=== PATIENT | female | born 1970 | race Caucasian/White ===

== ENCOUNTER → 2019-02-06 | Outpatient (CLI) | payer BC ==
--- NOTE | 2019-02-07 07:29 | MM ---
Reason for exam: screening (asymptomatic). Last mammogram was performed 3 years and 2 months ago. History: Family history of breast cancer in maternal grandmother at age 86 and breast cancer in aunt at age 69. Cyst aspiration of the left breast, July 04, 2004. Took hormonal contraceptives for 6 months beginning at age 22. Physical Findings: A clinical breast exam by your physician is recommended on an annual basis and results should be correlated with mammographic findings. MG 3D Screening Mammo W/Cad Bilateral CC and MLO view(s) were taken. Prior study comparison: December 14, 2015, bilateral MG screening mammo w CAD. October 22, 2014, bilateral MG screening mammo w CAD. The breast tissue is heterogeneously dense. This may lower the sensitivity of mammography. No significant changes when compared with prior studies. ASSESSMENT: Benign, BI-RAD 2 RECOMMENDATION: Routine screening mammogram of both breasts in 1 year.
== END ==
LOC: RADMAMWWP 07:16
PROVIDERS: ATTEND Obstetrics & Gynecology
DX: Z12.31 Encounter for screening mammogram for malignant neoplasm of breast (principal)
CPT/HCPCS: 77063; 77067

== ENCOUNTER 2020-09-14 16:36 | Emergency (ER) | payer BC ==
[2020-09-14 19:56] VITALS: RESP 18
--- NOTE | 2020-09-14 19:56 | ED ---
General Adult HPI - General Stated complaint: Covid+/sob/nausea/vomiting - History of Present Illness Initial comments: Pt was seen as a medical screening in [facility]: Pt is a 49 yo F without any significant PMH diagnosed with COVID on 09/05/20 presents for SOB. She has had symptoms of COVID for the past week. States she has had a persistent fever but it finally broke 24 hours ago. States she has had some shortness of breath and is difficult to take a deep breath. States her chest feels congested. Patient states she feels it was time to be "checked out." triage vitals: bp 141/94, HR 92, O2 sat 97% RA. I did see patient in the ER, HPI as documented above. - Related Data Home Medications Medication Instructions Recorded Confirmed Acetaminophen Tab [Tylenol Tab] 1,000 mg PO Q6HR PRN 09/14/20 09/14/20 guaiFENesin [Mucinex] 600 mg PO Q12H PRN 09/14/20 09/14/20 Previous Rx's Medication Instructions Recorded Albuterol Inhaler [Ventolin Hfa 2 puff INHALATION RT-QID PRN #1 09/14/20 Inhaler] inhaler Benzonatate [Tessalon Perles] 200 mg PO Q8H PRN #15 capsule 09/14/20 Allergies Allergy/AdvReac Type Severity Reaction Status Date / Time Iodinated Contrast Media Allergy Rash/Hives Verified 09/14/20 20:48 Review of Systems ROS Statement: Those systems with pertinent positive or pertinent negative responses have been documented in the HPI. ROS Other: All systems not noted in ROS Statement are negative. General Exam General appearance: alert, in no apparent distress Head exam: Present: atraumatic, normocephalic, normal inspection Eye exam: Present: normal appearance, PERRL, EOMI. Absent: scleral icterus, conjunctival injection, periorbital swelling ENT exam: Present: normal exam, mucous membranes moist Neck exam: Present: normal inspection, full ROM. Absent: tenderness, meningismus, lymphadenopathy Respiratory exam: Present: normal lung sounds bilaterally. Absent: respiratory distress, wheezes, rales, rhonchi, stridor Cardiovascular Exam: Present: regular rate, normal rhythm, normal heart sounds. Absent: systolic murmur, diastolic murmur, rubs, gallop, clicks GI/Abdominal exam: Present: soft, normal bowel sounds. Absent: distended, tenderness, guarding, rebound, rigid Course Vital Signs 09/14/20 09/14/20 09/14/20 19:52 20:52 21:22 Temperature 98.2 F Pulse Rate 92 86 90 Respiratory 18 18 18 Rate Blood Pressure 141/95 145/82 160/93 O2 Sat by Pulse 97 99 97 Oximetry Medical Decision Making - Medical Decision Making Vitals are stable. Patient is well-appearing. No respiratory distress. Patient is 97-99% on room air. EKG nonischemic. CBC CMP unremarkable. Troponin is negative. Chest x-ray did reveal coarse bilateral pulmonary infiltrates. Patient is stable for discharge home with outpatient follow-up. Patient does agree to antibody infusion as she does meet for BMI. I did discuss strict return parameters. I discussed this case with attending Dr. Ko who agrees with this assessment and treatment plan. - Lab Data Result diagrams: 09/14/20 20:56 09/14/20 20:56 Lab Results 09/14/20 09/14/20 09/14/20 Range/Units 20:56 20:56 20:56 WBC 6.9 (3.8-10.6) k/uL RBC 5.54 H (3.80-5.40) m/uL Hgb 14.0 (11.4-16.0) gm/dL Hct 42.3 (34.0-46.0) % MCV 76.3 L (80.0-100.0) fL MCH 25.3 (25.0-35.0) pg MCHC 33.2 (31.0-37.0) g/dL RDW 14.1 (11.5-15.5) % Plt Count 284 (150-450) k/uL MPV 7.4 Neutrophils % 69 % Lymphocytes % 21 % Monocytes % 6 % Eosinophils % 1 % Basophils % 1 % Neutrophils # 4.8 (1.3-7.7) k/uL Lymphocytes # 1.5 (1.0-4.8) k/uL Monocytes # 0.4 (0-1.0) k/uL Eosinophils # 0.1 (0-0.7) k/uL Basophils # 0.0 (0-0.2) k/uL Microcytosis Slight Sodium 137 (137-145) mmol/L Potassium 3.6 (3.5-5.1) mmol/L Chloride 102 (98-107) mmol/L Carbon Dioxide 26 (22-30) mmol/L Anion Gap 9 mmol/L BUN 8 (7-17) mg/dL Creatinine 0.59 (0.52-1.04) mg/dL Est GFR (CKD-EPI)AfAm >90 (>60 ml/min/1.73 sqM) Est GFR (CKD-EPI)NonAf >90 (>60 ml/min/1.73 sqM) Glucose 103 H (74-99) mg/dL Calcium 9.0 (8.4-10.2) mg/dL Total Bilirubin 0.5 (0.2-1.3) mg/dL AST 34 (14-36) U/L ALT 33 (4-34) U/L Alkaline Phosphatase 67 (38-126) U/L Troponin I <0.012 (0.000-0.034) ng/mL Total Protein 7.1 (6.3-8.2) g/dL Albumin 4.0 (3.5-5.0) g/dL Disposition Clinical Impression: COVID-19, Pneumonia due to COVID-19 virus Disposition: HOME SELF-CARE Condition: Good Instructions (If sedation given, give patient instructions): Coronavirus Disease 2019 (COVID-19) Additional Instructions: Take Motrin and Tylenol for fever or pain. Take Tessalon Perles as needed for cough. Use inhaler as needed. Please follow up with primary care in 1-2 days. Return to the emergency room for any worsening symptoms such as worsening shortness of breath. Prescriptions: Benzonatate [Tessalon Perles] 200 mg PO Q8H PRN #15 capsule PRN Reason: Cough Albuterol Inhaler [Ventolin Hfa Inhaler] 2 puff INHALATION RT-QID PRN #1 inhaler PRN Reason: Shortness Of Breath Is patient prescribed a controlled substance at d/c from ED?: No Referrals: Julia Cui III, MD [Primary Care Provider] - 1-2 days Time of Disposition: 23:36
--- NOTE | 2020-09-14 20:31 | XR ---
EXAMINATION TYPE: XR chest 2V DATE OF EXAM: 09/14/2020 COMPARISON: NONE HISTORY: Short of breath. Cough TECHNIQUE: 2 views FINDINGS: Heart and mediastinum are normal. There is coarse pulmonary interstitial infiltrates. There is no definite pleural effusion. There are no hilar masses. IMPRESSION: Coarse bilateral pulmonary infiltrates. Normal heart.
[2020-09-14 21:04] LABS: Basophils % (A) 1 %; Eosinophils # (A) 0.1 k/uL (0-0.7); Eosinophils % (A) 1 %; HCT 42.3 % (34.0-46.0); Lymphocytes # (A) 1.5 k/uL (1.0-4.8); Lymphocytes % (A) 21 %; MCH 25.3 pg (25.0-35.0); MCHC 33.2 g/dL (31.0-37.0); MCV 76.3 fL (80.0-100.0); Mean Platelet Volume 7.4; Microcytosis Slight; Monocytes # (A) 0.4 k/uL (0-1.0); Monocytes % (A) 6 %; Neutrophils # (A) 4.8 k/uL (1.3-7.7); Neutrophils % (A) 69 %; Platelet Count 284 k/uL (150-450); RBC 5.54 m/uL (3.80-5.40); RDW 14.1 % (11.5-15.5); WBC 6.9 k/uL (3.8-10.6)
[2020-09-14 21:13] LABS: ALT 33 U/L (4-34); AST 34 U/L (14-36); African American GFR (CKD) >90 (>60 ml/min/1.73 sqM); Alkaline Phosphatase 67 U/L (38-126); Anion Gap 9 mmol/L; Blood Urea Nitrogen 8 mg/dL (7-17); Carbon Dioxide 26 mmol/L (22-30); Chloride 102 mmol/L (98-107); Glucose 103 mg/dL (74-99); Non-African American GFR(CKD) >90 (>60 ml/min/1.73 sqM); Potassium 3.6 mmol/L (3.5-5.1); Sodium 137 mmol/L (137-145); Total Bilirubin 0.5 mg/dL (0.2-1.3); Total Protein 7.1 g/dL (6.3-8.2)
[2020-09-14] MEDS ORDERED: BAMLANIVIMAB (EUA) 700 MG, ETESEVIMAB (EUA) 1,400 MG in SODIUM CHLORIDE 0.9% 50 ML IVPB ONE (23:15)
[2020-09-15 02:08] VITALS: BP 135/73; PULSE 99; TEMP 98.7
== END 2020-09-15 01:48 | disposition home or self-care (01) ==
LOC: EC 16:36
DX: U07.1 COVID-19 (principal); J12.82 Pneumonia due to coronavirus disease 2019
CPT/HCPCS: 36415; 71046; 80053; 84484; 85025; 93005; 96365; 96374; 99285

== ENCOUNTER → 2021-04-06 | Outpatient (CLI) | payer BC ==
--- NOTE | 2021-04-07 11:40 | ECHOF ---
Referral Reason:R07.89 other chest pain MEASUREMENTS -------- HEIGHT: 165.1 cm WEIGHT: 95.3 kg BP: IVSd: 1.2 cm (0.6 - 1.1) LVIDd: 4.4 cm (3.9 - 5.3) LVPWd: 0.9 cm (0.6 - 1.1) EDV(Teich): 86 ml IVSs: 1.5 cm LVIDs: 2.7 cm LVPWs: 1.5 cm %IVS Thck: 30 % ESV(Teich): 27 ml EF(Teich): 68 % %FS: 38 % SV(Teich): 59 ml RVIDd: 2.9 cm (< 3.3) LALs A4C: 4.0 cm LAAs A4C: 12.1 cm LAESV A-L A4C: 31 ml LAESV MOD A4C: 30 ml LALs A2C: 5.0 cm LAAs A2C: 16.8 cm LAESV A-L A2C: 48 ml LAESV MOD A2C: 46 ml LAESV(A-L): 43 ml LAESV Index (A-L): 21.53 ml/m Ao Diam: 2.9 cm (2.0 - 3.7) LA Diam: 3.1 cm (2.7 - 3.8) AV Cusp: 1.8 cm (1.5 - 2.6) EPSS: 0.6 cm MV E Mark: 0.72 m/s MV DecT: 170 ms MV Dec Hamlin: 4.3 m/s MV A Mark: 0.54 m/s MV E/A Ratio: 1.34 MV PHT: 49 ms TR Vmax: 1.67 m/s TR maxP.18 mmHg RAP: 5.00 mmHg RVSP: 16.18 mmHg MV EF SLOPE: 94.72 mm/s (70 - 150) MV EXCURSION: 12.45 mm (> 18.000) FINDINGS -------- Sinus rhythm. This was a technically good study. The left ventricular size is normal. There is borderline concentric left ventricular hypertrophy. Overall left ventricular systolic function is low-normal with, an EF between 50 - 55 %. The right ventricle is normal in size. Normal LA size by volume 22+/-6 ml/m2. The right atrial size is normal. The aortic valve is trileaflet, and appears structurally normal. No aortic stenosis or regurgitation. Mild mitral regurgitation is present. Mild tricuspid regurgitation present. Right ventricular systolic pressure is normal at < 35 mmHg. There is no pulmonic regurgitation present. There is no pericardial effusion. CONCLUSIONS -------- 1. The left ventricular size is normal. 2. There is borderline concentric left ventricular hypertrophy. 3. Overall left ventricular systolic function is low-normal with, an EF between 50 - 55 %. 4. The right ventricle is normal in size. 5. Normal LA size by volume 22+/-6 ml/m2. 6. The right atrial size is normal. 7. The aortic valve is trileaflet, and appears structurally normal. No aortic stenosis or regurgitati on. 8. Mild mitral regurgitation is present. 9. Mild tricuspid regurgitation present. 10. There is no pericardial effusion. RESEARCH ASSOCIATE: Colleen Gaitan RDCS
== END | disposition home or self-care (01) ==
LOC: RADECHMAIN 13:53
PROVIDERS: ATTEND Family Medicine
DX: I08.1 Rheumatic disorders of both mitral and tricuspid valves (principal)
CPT/HCPCS: 93306

== ENCOUNTER → 2021-04-06 | Outpatient (CLI) | payer BC ==
--- NOTE | 2021-04-06 14:50 | XR ---
EXAMINATION TYPE: XR chest 2V DATE OF EXAM: 04/06/2021 COMPARISON: 09/14/2020 HISTORY: Chest pain TECHNIQUE: Frontal and lateral views of the chest are obtained. FINDINGS: There is no focal air space opacity. No evidence for pneumothorax. No pleural effusion. The cardiac silhouette size is within normal limits. The osseous structures are grossly intact. IMPRESSION: 1. No acute cardiopulmonary process.
== END | disposition home or self-care (01) ==
LOC: RADXRMAIN 14:26
PROVIDERS: ATTEND Family Medicine
DX: R07.9 Chest pain, unspecified (principal)
CPT/HCPCS: 71046

== ENCOUNTER → 2022-05-23 | Outpatient (CLI) | payer BC ==
--- NOTE | 2022-05-24 08:50 | MM ---
Reason for Exam: Screening (asymptomatic). Last mammogram was performed 3 year(s) and 4 month(s) ago. Patient History: Menarche at age 15. First Full-Term at age 20. Premenopausal. Hormonal Contraceptives for 6 months starting at age 22. 07/04/2004, Cyst Aspiration on the Left side. Maternal grandmother had breast cancer, age 86. Maternal aunt had breast cancer, age 69. Risk Values: Skylar 5 year model risk: 0.7%. NCI Lifetime model risk: 6.6%. Prior Study Comparison: 10/22/2014 Bilateral Screening Mammogram, [facility]. 12/14/2015 Bilateral Screening Mammogram, [facility]. 02/06/2019 Bilateral Screening Mammogram, [facility]. Tissue Density: There are scattered fibroglandular densities. Findings: Analyzed By CAD. There is no suspicious group of microcalcifications or new suspicious mass in either breast. Overall Assessment: Negative, BI-RAD 1 Management: Screening Mammogram of both breasts in 1 year. A clinical breast exam by your physician is recommended on an annual basis and results should be correlated with mammographic findings. [facility] will attempt to contact patient to return for supplemental views and ultrasound if indicated. Electronically signed and approved by: Brandon Chow DO
== END | disposition home or self-care (01) ==
LOC: RADMAMWWP 07:12
PROVIDERS: ATTEND Obstetrics & Gynecology
DX: Z12.31 Encounter for screening mammogram for malignant neoplasm of breast (principal); Z80.3 Family history of malignant neoplasm of breast
CPT/HCPCS: 77063; 77067

== ENCOUNTER 2022-06-29 06:28 | Day surgery (SDC) | payer BC ==
[2022-06-26 11:11] VITALS: BMI 36.6
--- NOTE | 2022-06-28 13:15 | P.HPOB ---
History of Present Illness H&P Date: 06/28/22 Chief Complaint: Dysfunctional uterine bleeding, endometrial polyp This patient is a pleasant 51 yr female who has been having long standing dysfunctional bleeding. Ultrasound shows a ~1.9cm endometrial polyp and endometrial biopsy was normal. She is now presenting for further evaluation and treatment by hysteroscopy, D&C, and endometrial ablation. Review of Systems Genitourinary: Reports as per HPI, Reports abnormal vaginal bleeding Menstruation: Reports as per HPI, Reports cycle variable, Reports period heavy Past Medical History Past Medical History: No Reported History Additional Past Medical History / Comment(s): OCCASIONAL VERTIGO, STATES HX LOW IRON., HEAVY FREQUENT MENSTRUAL PERIODS History of Any Multi-Drug Resistant Organisms: None Reported Additional Past Surgical History / Comment(s): LAPAROSCOPY, D & C. Past Anesthesia/Blood Transfusion Reactions: Motion Sickness, Postoperative Nausea & Vomiting (PONV) Additional Past Anesthesia/Blood Transfusion Reaction / Comment(s): OCCASIONAL VERTIGO. Past Psychological History: No Psychological Hx Reported Smoking Status: Former smoker Past Alcohol Use History: Occasional Additional Past Alcohol Use History / Comment(s): quit smoking 10 yrs ago (2011). Past Drug Use History: None Reported - Past Family History Mother Family Medical History: No Reported History Medications and Allergies Home Medications Medication Instructions Recorded Confirmed Type Ibuprofen [Motrin Ib] 400 - 800 mg PO DIRECTED PRN 06/26/22 06/26/22 History Immune Supplement 1 dose PO DIRECTED 06/26/22 History Allergies Allergy/AdvReac Type Severity Reaction Status Date / Time Iodinated Contrast Media Allergy Rash/Hives Verified 06/26/22 09:40 Exam - OBG Physical Exam Abdomen: bowel sounds normal, no diffuse tenderness, no bruit present, no guarding noted, no hepatomegaly, no splenomegaly, no mass Vulva: both: normal Vagina: normal moisture, no discharge Cervix: no lesion, no discharge Uterus: normal size Results Transvaginal ultrasound on 05/09 showed normal uterus with 1.9 cm endometrial polyp. Hormone levels were consistent with pre-menopause. Endometrial biopsy on 05/25 was normal. Assessment and Plan Assessment: This is a pleasant 51 yr female with long standing dysfunctional uterine bleeding and evaluation consistent with an endometrial polyp. After discussion, patient requests to proceed with endometrial ablation. Plan is hysteroscopy, D&C and Novasure endometrial ablation. I did discuss this surgery and risks: infection, bleeding, possible uterine perforation and/or thermal injury. All of her questions were answered and a written consent obtained. (1) DUB (dysfunctional uterine bleeding) Status: Acute Code(s): N93.8 - OTHER SPECIFIED ABNORMAL UTERINE AND VAGINAL BLEEDING SNOMED Code(s): 11560887635923 (2) Endometrial polyp Status: Acute Code(s): N84.0 - POLYP OF CORPUS UTERI SNOMED Code(s): 91137611
[~2022-06-29 06:28] MED LIST: DEXAMETHASONE SOD PHOSPHATE 4 MG/ML 1 ML VIAL IV ONE; LACTATED RINGERS 1,000 ML IV SCH; LIDOCAINE 1% (10MG/ML) FOR IV START INTRADERMA PRN; ONDANSETRON 4 MG/2 ML VIAL IVP ONE; Pre Op ABX Message 1 EACH MISC MISCELLANE ONE
[2022-06-29] MEDS ORDERED: LACTATED RINGERS 1,000 ML IV SCH (06:54)
[2022-06-29] MEDS ORDERED: DEXAMETHASONE SOD PHOSPHATE 4 MG/ML 1 ML VIAL IV ONE (06:54)
[2022-06-29] MEDS ORDERED: ONDANSETRON 4 MG/2 ML VIAL IVP ONE (06:54)
[2022-06-29] MEDS ORDERED: LIDOCAINE 1% (10MG/ML) FOR IV START INTRADERMA PRN (06:54)
[2022-06-29] MEDS ORDERED: ONDANSETRON 4 MG/2 ML VIAL IVP PRN (07:00)
[2022-06-29] MEDS ORDERED: HYDROmorphone 0.5 MG/0.5 ML SYRINGE IVP PRN (07:00)
[2022-06-29] MEDS ORDERED: METOCLOPRAMIDE 5 MG/ML 2 ML VIAL IVP PRN (07:00)
[2022-06-29] MEDS ORDERED: fentaNYL (PF) 50 MCG/ML 2 ML AMP ONE (07:22)
[2022-06-29] MEDS ORDERED: PROPOFOL 10 MG/ML 20 ML VIAL IV ONE (07:22)
[2022-06-29] MEDS ORDERED: KETOROLAC 15 MG/ML 1 ML VIAL ONE (07:22)
[2022-06-29] MEDS ORDERED: MIDAZOLAM 2 MG/2 ML VIAL ONE (07:22)
[2022-06-29] MEDS ORDERED: LIDOCAINE 2% INJ 20 MG/ML (2 ML VIAL) ONE (07:22)
[2022-06-29] MEDS: HYDROmorphone 0.5 MG/0.5 ML SYRINGE IVP PRN ×2 (08:00→08:10)
--- NOTE | 2022-06-29 08:04 | P.OP ---
Date of Procedure: 06/29/22 Preoperative Diagnosis: #1: Dysfunctional uterine bleeding. #2: Endometrial polyp Postoperative Diagnosis: Same Procedure(s) Performed: #1: Hysteroscopy. #2: Dilation and curettage. #3: NovaSure endometrial ablation Anesthesia: other (LMA) Surgeon: Trace Lynn Estimated Blood Loss (ml): 20 Urine output (ml): 40 Pathology: other (Uterine curettings and endometrial polyp) Condition: stable Disposition: PACU Indications for Procedure: Please see dictated H&P for intimate details of this patient's admission. Brief summary this pleasant 51-year-old 2 para 2 female long-standing dysfunctional uterine bleeding and transvaginal ultrasound showing a 1.9 cm endometrial polyp. Patient now presents for hysteroscopy D&C and also requesting NovaSure endometrial ablation for treatment. Patient understands procedure and risks and risks of infection, bleeding, possible uterine perforation, and/or thermal injury. All the patient's questions are answered and a written consent is obtained. Operative Findings: This patient had 2 small endometrial polyps which were completely removed. The uterine cavity appeared completely normal otherwise Description of Procedure: This patient is taken to the operating room where she is laid in the supine position. She subsequently undergoes general anesthesia without incident. With an adequate level of anesthesia she is placed in dorsal lithotomy position. She has a vaginal and perineal prep and drape. Examination under anesthesia shows a mid position uterus of normal size. Weighted speculum placed in posterior vagina. The bladder is drained 40 mL of clear urine. Allis clamp was placed in the anterior lip of the cervix. I then sounded the uterus gently to 8 cm. With this done the cervix was gently dilated to allow the hysteroscope into the uterine cavity. Hysteroscopy is performed with saline the uterine cavity is measured a length of 6.0 cm and there are 2 polyps noted on the anterior endometrial wall approximately 1 cm and a half centimeters dimensions. With this done the hysteroscope was removed. The cervix is dilated more to allow a polyp forceps easily and the uterine cavity. 2 passes are made with the polyp forceps and the polyps are completely removed. With this done, a gentle but thorough 4 quadrant curettage is then done for adequate sampling. This completed the NovaSure device is then opened it is set at a length of 6.0 cm. It opens up to a width of 3.9 cm. After passing the cavity integrity test is then enabled at [address] setting for 40 seconds. This completed the NovaSure device is then removed. Appears to be intact. Hysteroscopy is then performed again and the uterine cavity appears to be completely ablated and the polyps are completely removed. Excellent results are noted. This point the procedure is ended. The Allis clamp and weighted speculum removed. All counts are correct 3. There are no complications. Patient is awakened from anesthesia and taken recovery room satisfactory condition.
[2022-06-29 08:05] VITALS: TEMP 98.2
[2022-06-29 08:39] VITALS: RESP 14
[2022-06-29 08:59] VITALS: BP 154/90; PULSE 71
== END 2022-06-29 09:31 | disposition home or self-care (01) ==
LOC: OR 06:28
PROVIDERS: ATTEND Obstetrics & Gynecology
DX: N84.0 Polyp of corpus uteri (principal); N93.8 Other specified abnormal uterine and vaginal bleeding; Z87.891 Personal history of nicotine dependence; Z79.1 Long term (current) use of non-steroidal anti-inflammatories (NSAID); Z91.041 Radiographic dye allergy status
CPT/HCPCS: 58563; 88305; J2250; J1100; J2405; J3010; J1885; J2704; J1170; J2001

== ENCOUNTER → 2024-03-04 | Outpatient (CLI) | payer BC ==
--- NOTE | 2024-03-05 11:52 | MM ---
Reason for Exam: Screening (asymptomatic). Last mammogram was performed 1 year(s) and 9 month(s) ago. Patient History: Menarche at age 15. First Full-Term at age 20. Premenopausal. Hormonal Contraceptives for 6 months starting at age 22. 07/04/2004, Cyst Aspiration on the Left side. Maternal grandmother had breast cancer, age 86. Maternal aunt had breast cancer, age 69. Risk Values: Skylar 5 year model risk: 0.7%. NCI Lifetime model risk: 6.4%. Prior Study Comparison: 12/14/2015 Bilateral Screening Mammogram, [facility]. 02/06/2019 Bilateral Screening Mammogram, [facility]. 05/23/2022 Bilateral MG 3D screening mammo w/cad, [facility]. Tissue Density: The breasts are almost entirely fatty. Findings: Analyzed By CAD. Right breast: There is no suspicious group of microcalcifications or new suspicious mass. Left breast: There is no suspicious group of microcalcifications or new suspicious mass. Overall Assessment: Negative, BI-RAD 1 Management: Screening Mammogram of both breasts in [address] [facility] will attempt to contact patient to return for supplemental views and ultrasound if indicated. Patient should continue monthly self-breast exams. A clinical breast exam by your physician is recommended on an annual basis. This exam should not preclude additional follow-up of suspicious palpable abnormalities. Note on Skylar scores and lifetime risk: 1. A Skylar score greater than 3% is considered moderate risk. If this is the case, consider specialist referral to assess eligibility for a risk reducing agent. 2. If overall lifetime risk for the development of breast cancer is 20% or higher, the patient may qualify for future screening with alternating mammogram and breast MRI. [facility], , 03/05/2024 11:49 AM. Electronically signed and approved by: Brandon Chow DO
== END | disposition home or self-care (01) ==
LOC: RADMAMWWP 07:13
PROVIDERS: ATTEND Family Medicine
DX: Z12.31 Encounter for screening mammogram for malignant neoplasm of breast
CPT/HCPCS: 77063; 77067

== ENCOUNTER → 2024-04-25 | Day surgery (SDC) | payer BC ==
[2024-04-23 10:52] VITALS: BMI 32.1
[~2024-04-25] MED LIST changes: -DEXAMETHASONE SOD PHOSPHATE 4 MG/ML 1 ML VIAL IV ONE; -LIDOCAINE 1% (10MG/ML) FOR IV START INTRADERMA PRN; -ONDANSETRON 4 MG/2 ML VIAL IVP ONE; +PROPOFOL 10 MG/ML 20 ML VIAL IV ONE; -Pre Op ABX Message 1 EACH MISC MISCELLANE ONE
[2024-04-25] MEDS: IV FLUID CONTINUATION 1,000 ML IV ONE (11:21)
[2024-04-25 11:48] LABS: Glucose,Whole Blood 94 mg/dL (70-110)
[2024-04-25 11:57] VITALS: TEMP 97.6
--- NOTE | 2024-04-25 12:09 | P.PCN ---
Date of Procedure: 04/25/24 Procedure(s) Performed: BRIEF HISTORY: Patient is a 53-year-old pleasant white female scheduled for an elective colonoscopy as a part of screening for colon cancer. PROCEDURE PERFORMED: Colonoscopy. PREOPERATIVE DIAGNOSIS: Screening for colon cancer. IV sedation per Anesthesia. PROCEDURE: After informed consent was obtained, the patient, was brought into the endoscopy unit. IV sedation was administered by Anesthesia under continuous monitoring. Digital rectal examination was normal. Initially the Olympus CF-160 flexible video colonoscope was then inserted in the rectum, gradually advanced into the cecum without any difficulty. Careful examination was performed as the scope was gradually being withdrawn. Ileocecal valve and the appendiceal orifice were visualized and appeared normal. Prep was excellent. Mucosa of the cecum, ascending colon, transverse colon, descending colon, sigmoid colon, and rectum appeared normal. Retroflexion was performed in the rectum and no lesions were seen. The patient tolerated the procedure well. IMPRESSION: Normal-appearing colon from rectum to cecum with no evidence of colorectal neoplasia.. RECOMMENDATIONS: Findings of this examination were discussed with the patient as well as her family. She was advised to have repeat screening colonoscopy in 10 years..
[2024-04-25 12:30] VITALS: BP 126/77; PULSE 72; RESP 17
== END ==
LOC: ORWHC2ENDO 10:53
PROVIDERS: ATTEND Internal Medicine Gastroenterology
DX: Z12.11 Encounter for screening for malignant neoplasm of colon (principal); E11.9 Type 2 diabetes mellitus without complications; I10 Essential (primary) hypertension; Z79.899 Other long term (current) drug therapy; Z79.84 Long term (current) use of oral hypoglycemic drugs
CPT/HCPCS: 81025; 45378; J2704

== ENCOUNTER → 2024-07-16 | Outpatient (CLI) | payer BC ==
--- NOTE | 2024-07-16 09:13 | US ---
EXAMINATION TYPE: US abdomen complete DATE OF EXAM: 07/16/2024 COMPARISON: 03/17/2014 CLINICAL INDICATION: Female, 53 years old with history of R10.11 RIGHT UPPER QUADRANT PAIN; Right adolfo ed pain that has been intermittent x 3-4 months but has been increasing over the last month; Change i n bowel movements ? due to new medication. TECHNIQUE: Grayscale and color Doppler imaging of the abdomen was performed. FINDINGS: EXAM MEASUREMENTS: Liver Length: 16.3 cm Gallbladder Wall: 0.4 cm CBD: 0.5 cm, color Doppler imaging was utilized to isolate the common bile duct for measurement. Spleen: 10.8 cm Right Kidney: 11.8 x 4.2 x 5.7 cm Left Kidney: 11.0 x 5.1 x 5.4 cm Pancreas: wnl Liver: wnl, no dilated ducts, masses or cysts. Gallbladder: 2.1 cm shadowing stone fixed in the gallbladder neck. Borderline to mild gallbladder wa ll thickening. No hydropic change of surrounding fluid. Evidence for sonographic Barber's sign: No CBD: Upper limits of normal in caliber. Spleen: wnl Right Kidney: wnl, No hydronephrosis, calculi or masses seen Left Kidney: wnl, No hydronephrosis, calculi or masses seen Upper IVC: wnl Abd Aorta: wnl IMPRESSION: A 2.1 cm gallstone nonmobile at the gallbladder neck. There is mild gallbladder wall thickening but n o sonographic Barber's sign or hydropic change. Consider chronic cholecystitis. HIDA scan if clinical ly indicated. Follow-up ultrasound if concern for early acute cholecystitis. [facility], Workstation: [email or web address], 07/16/2024 9:11 AM
--- NOTE | 2024-07-16 09:15 | US ---
EXAMINATION TYPE: US pelvic complete DATE OF EXAM: 07/16/2024 COMPARISON: 03/17/2014 CLINICAL INDICATION: Female, 53 years old with history of R10.11 RIGHT UPPER QUADRANT PAIN; Hx endome triosis, endometrial thickening, right ovarian cyst, and ablation in 2021 TECHNIQUE: Transvaginal (TV) and Transabdominal (TA) . Transabdominal grayscale sonographic images of the pelvis were acquired. Transvaginal sonographic im ages were medically necessary to better assess the following anatomy: uterus, ovaries, endometrium Doppler imaging: Not performed. FINDINGS: Date of LMP: 2021 EXAM MEASUREMENTS: Uterus: 8.2 x 4.1 x 5.0 cm Endometrial Stripe: 0.4 cm Right Ovary: 2.9 x 2.3 x 2.8 cm Left Ovary: 2.2 x 1.6 x 2.0 cm 1. Uterus: Anteverted . The myometrium is heterogeneous. Multiple small echogenic areas throughout 2. Endometrium: wnl 3. Right Ovary: Echogenic foci seen throughout 4. Left Ovary: wnl 5. Bilateral Adnexa: wnl 6. Posterior cul-de-sac: wnl IMPRESSION: 1. Heterogeneous myometrium with scattered small echogenic areas. Findings may be seen in the setting of adenomyosis. If further imaging assessment is desired, female pelvic MRI can be considered to ass ess the junctional zone. 2. Endometrial stripe thin at 4 mm. [facility], Workstation: [email or web address], 07/16/2024 9:13 AM
== END | disposition home or self-care (01) ==
LOC: RADUSWWP 07:44
PROVIDERS: ATTEND Family Medicine
DX: K80.20 Calculus of gallbladder without cholecystitis without obstruction (principal); N85.8 Other specified noninflammatory disorders of uterus
CPT/HCPCS: 76700; 76830; 76856